=== PATIENT | male | born 1975 | race Caucasian/White ===

== ENCOUNTER 2017-01-19 11:26 | Emergency (ER) | payer SELFPAY ==
[~2017-01-19] VITALS: Ht 193 cm; Wt 111.1 kg
--- NOTE | 2017-01-19 11:59 | PHYS DOC ---
Past Medical History Past Medical History: Anxiety Additional Past Medical Histor: PVC's Past Surgical History: Other Additional Past Surgical Histo: finger, leg, knees Alcohol Use: Heavy Additional Information: Pt states he drinks heavily on the week-ends Drug Use: Marijuana Adult General Chief Complaint Chief Complaint: Palpitations HPI HPI Patient is a 41 year old male with a previous past medical history of anxiety and PVCs presents with complaints of palpitations patient denies any pain. Patient previously was on a beta pedro for his palpitations but stopped taking the medications. Patient was driving a car with a friend and he started feeling like his heart was racing he checks his pulse he thought the pulse was around 100 he started feeling anxious at that point and decided to come over to the ED to get checked out. Patient hasn't had any recent illnesses or sick contacts. Review of Systems Review of Systems Constitutional: Denies fever or chills [] HENT: Denies neck pain Respiratory: Denies cough or shortness of breath [] Cardiovascular: No additional information not addressed in HPI [] GI: Denies abdominal pain, nausea, vomiting, Musculoskeletal: Denies back pain or joint pain [] Integument: Denies rash or skin lesions [] Neurologic: Denies headache, focal weakness All systems reviewed and found to be negative unless stated otherwise Current Medications Current Medications Current Medications Medications (Trade) Dose Ordered Sig/Genesis Start Time Stop Time Status Last Admin Dose Admin Sodium Chloride 1,000 ml @ 1,000 mls/hr 1X ONCE 01/19/17 12:00 01/19/17 12:59 DC 01/19/17 12:02 1,000 MLS/HR Allergies Allergies Allergies Coded Allergies Type Severity Reaction Last Updated Verified No Known Drug Allergies 01/19/17 No Physical Exam Physical Exam Constitutional: Well developed, well nourished, no acute distress, non-toxic appearance. [] HENT: Normocephalic, atraumatic,, oropharynx dry, no oral exudates, nose normal. [] Eyes: EOMI, conjunctiva normal, no discharge. [] Neck: Normal range of motion, trachea midline, no JVD, supple, no stridor. [] Cardiovascular:Heart rate regular rhythm, no murmur, equal pulses, normal perfusion. Heart rate at the time of the exam is 96 Lungs & Thorax: Bilateral breath sounds clear to auscultation, no tachypnea Abdomen: Bowel sounds normal, soft, no tenderness, no masses, no pulsatile masses. [] Skin: Warm, dry, no erythema, no rash. [] Back: Normal range of motion Extremities: No tenderness, no cyanosis, no DVT, ROM intact, no edema. [] Neurologic: Alert and oriented X 3, normal motor function, , no focal deficits noted. [] Psychologic: Affect normal, judgement normal, mood normal. [] Current Patient Data Vital Signs Vital Signs Date Time Temp Pulse Resp B/P (MAP) Pulse Ox O2 Delivery O2 Flow Rate FiO2 01/19/17 11:37 97.8 98 16 143/70 (94) 98 Room Air 97.8 Lab Values Laboratory Tests Test 01/19/17 11:50 White Blood Count 8.3 x10^3/uL (4.0-11.0) Red Blood Count 4.59 x10^6/uL (4.30-5.70) Hemoglobin 15.0 g/dL (13.0-17.5) Hematocrit 42.9 % (39.0-53.0) Mean Corpuscular Volume 94 fL (79-100) Mean Corpuscular Hemoglobin 33 pg (25-35) Mean Corpuscular Hemoglobin Concent 35 g/dL (31-37) Red Cell Distribution Width 13.7 % (11.5-14.5) Platelet Count 185 x10^3/uL (140-400) Neutrophils (%) (Auto) 68 % (31-73) Lymphocytes (%) (Auto) 21 % (24-48) L Monocytes (%) (Auto) 8 % (0-9) Eosinophils (%) (Auto) 2 % (0-3) Basophils (%) (Auto) 1 % (0-3) Neutrophils # (Auto) 5.7 x10^3uL (1.8-7.7) Lymphocytes # (Auto) 1.7 x10^3/uL (1.0-4.8) Monocytes # (Auto) 0.7 x10^3/uL (0.0-1.1) Eosinophils # (Auto) 0.2 x10^3/uL (0.0-0.7) Basophils # (Auto) 0.0 x10^3/uL (0.0-0.2) Sodium Level 140 mmol/L (136-145) Potassium Level 4.1 mmol/L (3.5-5.1) Chloride Level 105 mmol/L (98-107) Carbon Dioxide Level 24 mmol/L (21-32) Anion Gap 11 (6-14) Blood Urea Nitrogen 12 mg/dL (8-26) Creatinine 1.1 mg/dL (0.7-1.3) Estimated GFR (Cockcroft-Gault) 74.1 Glucose Level 156 mg/dL (70-99) H Calcium Level 8.8 mg/dL (8.5-10.1) Magnesium Level 2.0 mg/dL (1.8-2.4) Troponin I Quantitative < 0.017 ng/mL (0.000-0.055) Laboratory Tests 01/19/17 11:50 Laboratory Tests 01/19/17 11:50 EKG EKG 1129 sinus tachycardia, 106, no stemi[, no pvc 1305 monitor rhythm strip: 76, sinus rhythm, no ST elevation, no pvc Radiology/Procedures Radiology/Procedures [] Course & Med Decision Making Course & Med Decision Making Pertinent Labs and Imaging studies reviewed. (See chart for details) 130 1307 results discussed with patient, feels much improved has no complaints at this time[] Dragon Disclaimer Dragon Disclaimer This electronic medical record was generated, in whole or in part, using a voice recognition dictation system. Departure Departure Impression: Primary Impression: Palpitations Additional Impression: Dehydration Disposition: 01 HOME, SELF-CARE Condition: IMPROVED Patient Instructions: Dehydration, Adult, [id number], Palpitations, Easy-to- Read Additional Instructions: Please follow-up with your PCP or one of the clinics in the list provided to you. Please follow-up within a week for recheck and reevaluation Problem Qualifiers Terrence DESIR MD Jan 19, 2017 11:59
[2017-01-19] MEDS ORDERED: IV NORMAL SALINE 1000ML BAG 1,000 ML IV ONE (12:00)
[2017-01-19 12:07] LABS: BASO % 1 % (0-3); EOS % 2 % (0-3); HEMATOCRIT 42.9 % (39.0-53.0); LYMPH # 1.7 x10^3/uL (1.0-4.8); LYMPH % 21 % (24-48); MEAN CORPUSCULAR HEMOGLOBIN 33 pg (25-35); MEAN CORPUSCULAR HGB CONC 35 g/dL (31-37); MEAN CORPUSCULAR VOLUME 94 fL (79-100); MONO % 8 % (0-9); NEUT % 68 % (31-73); PLATELET COUNT 185 x10^3/uL (140-400); RED BLOOD COUNT 4.59 x10^6/uL (4.30-5.70); RED CELL DISTRIBUTION WIDTH 13.7 % (11.5-14.5); WHITE BLOOD COUNT 8.3 x10^3/uL (4.0-11.0)
[2017-01-19 12:24] LABS: CALCIUM 8.8 mg/dL (8.5-10.1); CREATININE 1.1 mg/dL (0.7-1.3); GFR 74.1; POTASSIUM 4.1 mmol/L (3.5-5.1)
[2017-01-19 13:24] VITALS: BP 127/68
--- NOTE | 2017-01-19 14:27 | EKG ---
[facility] [address] [place] [id number] Test Date: 2017-01-19 Test Time: 11:28:41 Pat Name: VÍCTOR MANSFIELD Department: Room: Gender: M Bending Machine Operator: : [id number] Requested By: Terrence DESIR Order Number: [id number] Reading MD: Measurements Intervals [place] Rate: 106 P: 69 SC: 108 QRS: 52 QRSD: 104 T: 47 QT: 334 QTc: 445 Interpretive Statements SINUS TACHYCARDIA S1,S2,S3 PATTERN INCOMPLETE RIGHT BUNDLE BRANCH BLOCK CONSIDER RIGHT VENTRICULAR HYPERTROPHY QRS(T) CONTOUR ABNORMALITY CANNOT RULE OUT ANTEROLATERAL MYOCARDIAL DAMAGE RI6.01 Unconfirmed report No previous ECG available for comparison
== END 2017-01-19 13:29 | disposition home or self-care (01) ==
LOC: ER 11:26
DX: R00.2 Palpitations (principal); E86.0 Dehydration; F12.10 Cannabis abuse, uncomplicated; F10.20 Alcohol dependence, uncomplicated
CPT/HCPCS: 36415; 80048; 83735; 84484; 85025; 93005; 96360; 99285; J7030